=== PATIENT | female | born 1980 | race Caucasian/White ===

== ENCOUNTER 2020-03-29 16:38 | Inpatient (IN) | payer OTHER ==
[2020-03-29] MEDS ORDERED: RINGERS SOLUTION,LACTATED 1,000 ML IV ONE (16:46)
[2020-03-29] MEDS ORDERED: BETAMET ACET/BETAMET NA INJ 6 MG/1 ML IM ONE (16:48)
[2020-03-29 17:41] LABS: APPEARANCE,URINE SLIGHTLY-CLOUDY; BILIRUBIN,URINE NEGATIVE (NEGATIVE); COLOR,URINE STRAW; GLUCOSE, URINE NEGATIVE (NEGATIVE); KETONES,URINE NEGATIVE (NEGATIVE); LEUKOCYTE ESTERASE,URINE LARGE (NEGATIVE); NITRITE,URINE NEGATIVE (NEGATIVE); PROTEIN,URINE NEGATIVE (NEGATIVE); URINE SPECIFIC GRAVITY 1.003; UROBILINOGEN,URINE NEGATIVE mg/dL (<2.0)
[2020-03-29] MEDS ORDERED: BETAMET ACET/BETAMET NA INJ 6 MG/1 ML ONE (17:52)
[2020-03-29 17:58] LABS: URINE AMPHETAMINES SCREEN NEGATIVE; URINE BARBITURATES SCREEN NEGATIVE; URINE BENZODIAZEPINES SCREEN NEGATIVE; URINE COCAINE SCREEN NEGATIVE; URINE MARIJUANA (THC) SCREEN NEGATIVE; URINE METHADONE SCREEN NEGATIVE; URINE PHENCYCLIDINE SCREEN NEGATIVE
[2020-03-29 18:17] LABS: ABSOLUTE EOSINOPHILS # (AUTO) 0.1 10^3/uL (0.0-0.6); ABSOLUTE LYMPHOCYTES (AUTO) 2.1 10^3/uL (0.5-4.7); ABSOLUTE MONOCYTES (AUTO) 0.3 10^3/uL (0.1-1.4); ABSOLUTE NEUT (AUTO) 5.7 10^3/uL (1.7-8.2); BASOPHILS % (AUTO) 0.2 % (0-2); EOSINOPHILS % (AUTO) 0.7 % (0-6); HEMATOCRIT 31.4 % (36.0-47.0); LYMPHOCYTES % (AUTO) 25.5 % (13-45); MEAN CORPUSCULAR HEMOGLOBIN 29.1 pg (27.0-33.4); MEAN CORPUSCULAR HGB CONC 34.9 g/dL (32.0-36.0); MEAN CORPUSCULAR VOLUME 83 fl (80-97); PLATELET COUNT 172 10^3/uL (150-450); RED BLOOD COUNT 3.78 10^6/uL (3.72-5.28); RED CELL DISTRIBUTION WIDTH 14.7 % (11.5-14.0); SEGMENTED NEUTROPHILS % (AUTO) 69.6 % (42-78); TOTAL CELLS COUNTED % (AUTO) 100 %; WHITE BLOOD COUNT 8.2 10^3/uL (4.0-10.5)
--- NOTE | 2020-03-29 18:53 | Admission Physical ---
Datetime Report Generated by CPN: 03/29/2020 18:52 CURRENT ADMISSION Chief Complaint: Sent from OB Office for Evaluation and Treatment - Please Specify Indication for Induction: Not Applicable Admit Impression : , Intrauterine ; No Active Labor; Intact Membranes; Observation/Evaluation Admit Plan: Admit to Unit; Observation/Evaluation ALLERGIES Medication Allergies: Yes Medication Allergies: doxycycline/Generalized elizabeth (03/29/2020); amoxicillin/Generalized elizabeth (03/29/2020); levofloxacin/Generalized elizabeth (03/29/2020) Latex: No Latex Allergies OBSTETRICAL HISTORY EDC: 04/26/2020 00:00 : 3 Para: 1 Term: 1 : 0 SAB: 1 IAB: 0 Ectopic: 0 Livin Cesareans: 1 VBACs: 0 Multiple Births: 0 Gestational Diabetes: No Rh Sensitization: No Incompetent Cervix: No MAGUI: No Infertility: No ART Treatment: No Uterine Anomaly: No IUGR: No Hx Previous C/S: No Macrosomia: No Hx Loss/Stillborn: No PIH: No Hx : No Placenta Previa/Abruption: No Depression/PP Depression: No PTL/PROM: No Post Hemorrhage: No Current Procedures: Ultrasound Obstetrical History Comments: H0-Eyoi-Wsghsyiy failure to progress-Girl G2-SAB G3-Current SEE RECORDS Alcohol: No Marijuana : No Cocaine: No Other Illicit Drugs: No Cigarettes: Never Smoker. 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: No Heart Disease: No Hosp/Surgery: Yes Autoimmune Disorder: No Anesthetic Complications: No Kidney Disease: No Abnormal Pap Smear: No Neuro/Epilepsy: No Psychiatric Disorders: No Other Medical Diseases: No Hepatitis/Liver Disease: No Significant Family History: No Varicosities/Phlebitis: No Trauma/Violence : No Thyroid Dysfunction: No Medical History Comments: Sinus surgery; Csection INFECTIOUS HISTORY Gonorrhea: No Genital Herpes: No Chlamydia: Yes Tuberculosis: No Syphilis: No Hepatitis: No HIV/AIDS Exposure: No Rash or Viral Illness: No HPV: No Infectious History Comments: Chlamydia 2010 PHYSICAL EXAM General: Normal HEENT: Normal Neurologic: Normal Thyroid: Deferred Heart: Normal Lungs: Normal Breast: Deferred Back: Normal Abdomen: Normal Genitourinary Exam: Normal Extremities: Normal DTRs: Normal Pelvic Type: Adequate Vital Signs: Reviewed FETUS A EGA: 36.0 Monitoring: External US FHR- Baseline: 130 Variability: Moderate 6-25bpm Accelerations: 15X15 Decelerations: None FHR Category: Category I Estimated Weight (gm): 2855 Presentation: Vertex Admit Comment: 39yo at 36+0ega (ISAURA from IVF 04/26/2020) presents from the office for Low JAMES. SDP 1.9cm. Total JAMES 3.2. Actimprom negative. h/o Cesaren section - desires repeat. AMA. Obesity. Transfer at 34wks. Incomplete labs done on admission. Admit for Observation. Steroids. IVF. May need to be delivered in the next 24-48 hours if Oligo persists. JAMES yesterday was 5.07 (SDP was 3.78 - others were 0.29, 0.1, 0.9). EFW 2855g (6#5oz) - 47.6%. Reviewed plan of care with patient. She has a h/o prior section and desires repeat. PLANS FOR LABOR AND DELIVERY Labor and Delivery: None Pain Management: Spinal Feeding Preference: Formula Benefit of Breast Feed Discussed: Yes Circumcision: Yes INFORMED CONSENT Informed Consent Obtained: Section Delivery; Risks, Benefits and Alternatives Discussed Signature: with User ID: [email or web address]
[2020-03-29 19:15] LABS: CHLAM PCR NOT DETECTED (NOT DETECT)
[2020-03-30] MEDS: RINGERS SOLUTION,LACTATED 1,000 ML IV PRN ×2 (03:27→21:25)
[2020-03-30 03:57] LABS: ABSOLUTE LYMPHOCYTES (AUTO) 1.1 10^3/uL (0.5-4.7); ABSOLUTE MONOCYTES (AUTO) 0.1 10^3/uL (0.1-1.4); ABSOLUTE NEUT (AUTO) 6.4 10^3/uL (1.7-8.2); BASOPHILS % (AUTO) 0.3 % (0-2); MEAN CORPUSCULAR HGB CONC 34.4 g/dL (32.0-36.0); MEAN CORPUSCULAR VOLUME 85 fl (80-97); MONOCYTES % (AUTO) 1.8 % (3-13); PLATELET COUNT 180 10^3/uL (150-450); RED BLOOD COUNT 3.79 10^6/uL (3.72-5.28); RED CELL DISTRIBUTION WIDTH 14.6 % (11.5-14.0); SEGMENTED NEUTROPHILS % (AUTO) 82.9 % (42-78); TOTAL CELLS COUNTED % (AUTO) 100 %; WHITE BLOOD COUNT 7.7 10^3/uL (4.0-10.5)
[2020-03-30 04:14] LABS: ALBUMIN 3.2 g/dL (3.5-5.0); ALKALINE PHOSPHATASE 149 U/L (38-126); ANION GAP 7 (5-19); ASPARTATE AMINO TRANSFERASE 20 U/L (14-36); BILIRUBIN,DIRECT 0.2 mg/dL (0.0-0.4); BILIRUBIN,TOTAL 0.6 mg/dL (0.2-1.3); BLOOD UREA NITROGEN 6 mg/dL (7-20); CALCIUM 8.9 mg/dL (8.4-10.2); CARBON DIOXIDE 22 mmol/L (22-30); CHLORIDE 105 mmol/L (98-107); GLUCOSE 124 mg/dL (75-110); POTASSIUM 4.2 mmol/L (3.6-5.0); TOTAL PROTEIN 6.1 g/dL (6.3-8.2); URIC ACID 3.3 mg/dL (2.5-7.0)
[2020-03-30 04:35] LABS: UR PRO/CREAT RATIO RESULT 0.7 mg/mg (0.0-0.2); URINE CREATININE 21.2 mg/dL (16-327); URINE PROTEIN 15.6 mg/dL (<12)
--- NOTE | 2020-03-30 17:14 | RADIOLOGY REPORT (SQ) ---
EXAM DESCRIPTION: U/S OB LIMITED IMAGES COMPLETED DATE/TIME: 03/30/2020 4:29 pm REASON FOR STUDY: NEED REPEAT JAMES d/t suspected Oligo COMPARISON: None. TECHNIQUE: Limited transabdominal grayscale ultrasound for evaluation of specific requested obstetri alice parameters. LIMITATIONS: None. FINDINGS: CERVICAL LENGTH: 3.0 cm Closed. L JEWELRY SALES REPRESENTATIVE: 3.2 x 2.5 cm clear. FHR: 141 beats per minute. PRESENTATION: Cephalic. PLACENTA: Anterior ANATOMY: Not assessed OTHER: No other significant findings. IMPRESSION: LIMITED OBSTETRICAL ULTRASOUND WITH MEASURED PARAMETERS DELINEATED ABOVE. Trimester of : Third trimester - 28 weeks to delivery. TECHNICAL DOCUMENTATION: JOB ID: [id number] 2010 [employer]- All Rights Reserved Reading location - IP/workstation name: [email or web address]
[2020-03-30] MEDS ORDERED: BETAMET ACET/BETAMET NA INJ 6 MG/1 ML ONE (17:28)
[2020-03-30] MEDS ORDERED: BETAMET ACET/BETAMET NA INJ 6 MG/1 ML IM ONE (18:00)
[2020-03-30] MEDS ORDERED: GLUCAGON,HUMAN RECOMB 1 MG INJ SUBCUT PRN (21:01)
[2020-03-30] MEDS ORDERED: DEXTROSE 40% GEL 15 GM TUBE PO PRN ×2 (21:01)
[2020-03-30] MEDS ORDERED: DEXTROSE 50%-WATER 25 GM/50 ML DISP.SYRIN IV PRN ×2 (21:01)
--- NOTE | 2020-03-30 22:14 | PDOC PROGRESS REPORT ---
Subjective Progress Note for:: 03/30/20 Subjective:: Doing well. No issues. Reports good FM. Patient states she feels like "things are changing and she is not quite herself-like something isnt right". She denies JOEL, CP, SOB, RUQ pain, n/v or vision changes. She has no VB, LOF or contractions Reason For Visit: IUP @ 36.1 OLIGO, PRE-E Physical Exam - Physical Exam Vital Signs: Intake & Output 03/29/20 03/30/20 03/31/20 06:59 06:59 06:59 Intake Total 1000 Balance 1000 Weight 102 kg General appearance: PRESENT: no acute distress, cooperative Respiratory exam: PRESENT: clear to auscultation edgardo Cardiovascular exam: PRESENT: RRR, +S1, +S2 GI/Abdominal exam: PRESENT: normal bowel sounds - NO tenderness on palpation, soft Extremities exam: PRESENT: full ROM. ABSENT: calf tenderness - Reflexes 1/4 BLE, no clonus, clubbing, pedal edema Neurological exam: PRESENT: alert, awake Psychiatric exam: PRESENT: appropriate affect Result Laboratory Results: 03/30/20 03:47 03/30/20 03:47 03/30/20 03/30/20 03:47 03:47 WBC 7.7 RBC 3.79 Hgb 11.0 L Hct 32.0 L MCV 85 MCH 29.0 MCHC 34.4 RDW 14.6 H Plt Count 180 Seg Neutrophils % 82.9 H Sodium 134.4 L Potassium 4.2 Chloride 105 Carbon Dioxide 22 Anion Gap 7 BUN 6 L Creatinine 0.49 L Est GFR ( Amer) > 60 Glucose 124 H Uric Acid 3.3 Calcium 8.9 Total Bilirubin 0.6 AST 20 Alkaline Phosphatase 149 H Total Protein 6.1 L Albumin 3.2 L Impressions: Obstetrics Ultrasound 03/30/20 00:00 IMPRESSION: LIMITED OBSTETRICAL ULTRASOUND WITH MEASURED PARAMETERS DELINEATED ABOVE. Trimester of : Third trimester - 28 weeks to delivery. Assessment & Plan - Diagnosis (1) Mild pre-eclampsia Qualifiers: Trimester: third trimester Qualified Code(s): O14.03 - Mild to moderate pre-eclampsia, third trimester Is this a current diagnosis for this admission?: Yes (2) Oligohydramnios Qualifiers: Fetus number: single or unspecified fetus Trimester: third trimester Qualified Code(s): O41.03X0 - Oligohydramnios, third trimester, not applicable or unspecified Is this a current diagnosis for this admission?: Yes (3) resulting from assisted reproductive technology Qualifiers: Trimester: third trimester Qualified Code(s): O09.813 - Supervision of resulting from assisted reproductive technology, third trimester Is this a current diagnosis for this admission?: Yes - Time Time Spent with patient: 15-24 minutes Medications reviewed and adjusted accordingly: Yes Anticipated discharge: Home Anticipated DC Timeframe: within 48 hours, within 36 hours - Inpatient Certification Based on my medical assessment, after consideration of the patient's lorena rbidities, presenting symptoms, or acuity I expect that the services needed warrant INPATIENT care.: Yes I certify that my determination is in accordance with my understanding of Medicare's requirements for reasonable and necessary INPATIENT services [42 CFR 412.3e].: Yes Medical Necessity: Need Close Monitoring Due to Risk of Patient Decompensation - Mild preeclampsia, oligohydraminos: recieving steroids prior to delivery and needs Continuous external monitoring - Plan Summary Plan Summary: 39 yo at 36.1 wks EGA with Preeclampsia: mild and Oligohydraminos with JAMES of 2.5 cm -Admit to LDR for CEFM and steroids -Give BMZ x2, last will be today at 1755 -May eat until after midnight for RCS tomorrow -Out of bed at monty -VS q 4 hrs -Repeat CBC, CMP in am -No plan for magnesium unless progression to severe preE -Risks, benefits of RCS discussed. Answered questions and consent signed.
[2020-03-31 06:47] LABS: ABSOLUTE LYMPHOCYTES (AUTO) 1.4 10^3/uL (0.5-4.7); ABSOLUTE MONOCYTES (AUTO) 0.4 10^3/uL (0.1-1.4); BASOPHILS % (AUTO) 0.1 % (0-2); EOSINOPHILS % (AUTO) 0.1 % (0-6); HEMATOCRIT 32.2 % (36.0-47.0); HEMOGLOBIN 11.1 g/dL (12.0-15.5); LYMPHOCYTES % (AUTO) 15.5 % (13-45); MEAN CORPUSCULAR HGB CONC 34.4 g/dL (32.0-36.0); MEAN CORPUSCULAR VOLUME 84 fl (80-97); MONOCYTES % (AUTO) 4.2 % (3-13); PLATELET COUNT 155 10^3/uL (150-450); RED BLOOD COUNT 3.82 10^6/uL (3.72-5.28); RED CELL DISTRIBUTION WIDTH 14.4 % (11.5-14.0); SEGMENTED NEUTROPHILS % (AUTO) 80.1 % (42-78); TOTAL CELLS COUNTED % (AUTO) 100 %; WHITE BLOOD COUNT 8.8 10^3/uL (4.0-10.5)
[2020-03-31 07:28] LABS: ALBUMIN 3.1 g/dL (3.5-5.0); ALKALINE PHOSPHATASE 142 U/L (38-126); ANION GAP 6 (5-19); ASPARTATE AMINO TRANSFERASE 19 U/L (14-36); BILIRUBIN,DIRECT 0.2 mg/dL (0.0-0.4); BILIRUBIN,TOTAL 0.3 mg/dL (0.2-1.3); BLOOD UREA NITROGEN 8 mg/dL (7-20); CALCIUM 8.9 mg/dL (8.4-10.2); CARBON DIOXIDE 22 mmol/L (22-30); CHLORIDE 108 mmol/L (98-107); GLUCOSE 125 mg/dL (75-110)
[2020-03-31 07:37] LABS: HEPATITIS C VIRUS AB <0.1 s/co ratio (0.0-0.9)
[2020-03-31] MEDS ORDERED: CITRIC ACID/SODIUM CITRATE ORAL SOLN 15 ML UDCUP ONE (07:54)
[2020-03-31] MEDS ORDERED: CEFAZOLIN 2 GM/D5W RTU 2 GM/50 ML RTUPB IV ONE (07:54)
[2020-03-31] MEDS ORDERED: ONDANSETRON HCL INJ/PF 4 MG/2 ML SDV ONE (08:53)
[2020-03-31] MEDS ORDERED: OXYTOCIN 10 UNIT/ML VIAL ONE (08:54)
[2020-03-31] MEDS ORDERED: MIDAZOLAM 2 MG/2 ML INJ ONE (08:54)
[2020-03-31] MEDS ORDERED: PHENYLEPHRINE HCL INJ/PF 10 MG/1 ML SDV ONE (09:26)
--- NOTE | 2020-03-31 09:48 | Warning Signs in Babies ---
VOD Warning Signs Datetime Report Generated by [facility]: 03/31/2020 09:48 VOD#[id number] -Warning Signs in Babies: Needs to be viewed. (03/29/2020 17:15:Kahlil Parekh RN)
[2020-03-31] MEDS ORDERED: RINGERS SOLUTION,LACTATED 1,000 ML IV PRN ×2 (11:09→16:19)
[2020-03-31] MEDS ORDERED: MEASLES,MUMPS&RUBELLA VACC/PF 0.5 ML VIAL SUBCUT PRN ×2 (11:09→16:19)
[2020-03-31] MEDS ORDERED: MORPHINE SULFATE 10 MG/ML INJ ONE (11:09)
[2020-03-31] MEDS ORDERED: OXYTOCIN/0.9 % SODIUM CHLORIDE 30 UNIT/500 ML RTUINJ IV PRN ×2 (11:09→16:19)
[2020-03-31] MEDS ORDERED: OXYCODONE-ACETAMINOPHEN 5-325 MG TABLET PO PRN ×3 (11:09→16:19)
[2020-03-31] MEDS ORDERED: OXYTOCIN/0.9 % SODIUM CHLORIDE 30 UNIT/500 ML RTUINJ ONE (11:09)
[2020-03-31] MEDS ORDERED: SIMETHICONE 80 MG TAB.CHEW PO PRN ×2 (11:09→16:19)
[2020-03-31] MEDS ORDERED: ACETAMINOPHEN 325 MG TABLET PO PRN ×2 (11:09→16:19)
[2020-03-31] MEDS ORDERED: PROMETHAZINE HCL INJ 25 MG/1 ML VIAL IV PRN ×2 (11:09→16:19)
[2020-03-31] MEDS ORDERED: ACETAMINOPHEN 1,000 MG/100 ML RTUPB IV PRN (11:09)
[2020-03-31] MEDS ORDERED: DIPH/PERTUSS(ACELL)/TETANUS VAC/PF 0.5 ML SYR (>=10YO) IM PRN ×2 (11:09→16:19)
--- NOTE | 2020-03-31 12:45 | Delivery Summary ---
Del Sum A-C Datetime Report Generated by CPN: 03/31/2020 12:45 DELIVERY PERSONNEL DELIVERY PERSONNEL: [id number] Delivery Doctor:: Marycarmen Linda MD SCRAP METAL BURNER:: Marck Leonardo CRNA Labor and Delivery Nurse:: Kahlil Parekh RN Loom Operator Apprentice:: Kahlil Parekh RN Neonatal Nurse Practitioner:: SANTOSH Alvarado Nursery Nurse:: Justyna Pryor RN Community Representative/ENDING MACHINE OPERATOR: Kate Sanchez PRE PAROLE COUNSELING AIDE Community Representative/ENDING MACHINE OPERATOR: Tori Ross, ST MATERNAL INFORMATION Delivery Anesthesia: Spinal Medications After Delivery: Pitocin 30 Units in 500ml NS/D5W Delivery QBL: 840 Maternal Complications: None LABOR SUMMARY EDC: 04/26/2020 00:00 No. Babies in Womb: 1 Attempted: No Labor Anesthesia: None LABOR INFORMATION Reason for Induction: Not Applicable Oxytocin: N/A Group B Beta Strep: 1 NO GROUP B STREPTOCOCCUS RECOVERED Antibiotics # of Doses: 1 Antibiotics Time of Last Dose: 03/31/2020 08:12 Name of Antibiotic Given: Ancef Steroids Given: Full Course; > 24 Hours before Delivery Reason Steroids Not Administered: Indication MEMBRANES Membranes Rupture Method: Artificial Rupture of Membranes: 03/31/2020 09:30 Length of Rupture (hr): 0.05 Amniotic Fluid Color: Clear Amniotic Fluid Amount: Scant Amniotic Fluid Odor: Normal STAGES OF LABOR Stage 3 hr: 0 Stage 3 min: 1 VAGINAL DELIVERY Episiotomy: None Laceration #1: None Laceration Extension #1: N/A Laceration Repair: Not Applicable Sponge Count Correct: N/A Sharps Count Correct: N/A CSECTION DELIVERY Primary Indication: Repeat Elective CSection Urgency: Non-Scheduled CSection Incidence: Repeat Labor: N/A Elective: Elective CSection Incision: Lower Uterine Transverse BABY A INFORMATION Infant Delivery Date/Time: 03/31/2020 09:33 Method of Delivery: Nurse Controlled Delivery: No Born in Route : No : N/A Forceps: N/A Vacuum Extraction: Successful Shoulder Dystocia : No ASSISTED DELIVERY BABY A Catheter Prior to Procedure: Yes Vacuum Number of Pulls: 1 Vacuum Sandwich Counter Attendant: [employer] Total Time Vacuum Applied: 1 Vacuum/Forceps Comment: Kiwi used during Ref [id number] Lot [id number] PRESENTATION/POSITION BABY A Presentation: Cephalic Cephalic Presentation: Vertex Breech Presentation: N/A PLACENTA INFORMATION BABY A Placenta Delivery Time : 03/31/2020 09:34 Placenta Method of Delivery: Manual Removal Placenta Status: Delivered SCORES BABY A Heart Rate 1 min: Slow, Below 100 bpm Resp Effort 1 min: Absent Reflex Irritability 1 min: Grimace Muscle Tone 1 min: Flaccid Color 1 min: Blue/Pale Resuscitation Effort 1 min: Tactile Stimulation; Oxygen; PPV/NCPAP SCORE 1 MIN: 2 Heart Rate 5 min: >100 bpm Resp Effort 5 min: Good Cry Reflex Irritability 5 min: Cough or Sneeze or Pulls Away Muscle Tone 5 min: Some Flexion of Extremities Color 5 min: Body [place], Extremities Blue Resuscitation Effort 5 min: Tactile Stimulation SCORE 5 MIN: 8 INFORMATION BABY A Gestational Age at Delivery: 36.2 Gestational Status: Late - 34- 36.6 Weeks Infant Outcome : Liveborn Infant Condition : Stable Infant Sex: Male IDENTIFICATION BABY A Infant Verification Date/Time: 03/31/2020 09:47 ID Band Number: [id number] Mother's Name Verified: Yes Infant RN Verifying : CCourtney Hooks, RN ; M. Stiven, RN WEIGHT/LENGTH BABY A Birthweight (gm): 2795 Infant Weight (lb): 6 Weight (oz): 3 Length (in): 19.00 Infant Length (cm): 48.26 CORD INFORMATION BABY A No. Cord Vessels: 3 Nuchal Cord : N/A Cord Blood Taken: Yes-For Storage (Mom's Blood type +) Infant Suction: Mouth ASSESSMENT BABY A Skin to Skin: No BABY B INFORMATION : N/A
--- NOTE | 2020-03-31 12:46 | Birth Certificate Data ---
Cert Data Datetime Report Generated by CPJuan: 03/31/2020 12:45 CERTIFICATE DATA 47a. Care: Yes (03/29/2020 17:15:Rosa Vogel RN) 47b. Date of First Visit: 09/22/2019 00:00 (03/29/2020 17:15:Rosa Vogel RN) 48a. Number of Prev Live Births: 1 (03/29/2020 17:15:Rosa Vogel RN) 48b. Now Livin (03/29/2020 17:15:Rosa Vogel RN) 48c. Live Births Now : 0 (03/29/2020 17:15:QS system process) 48d. Date of Last Live : 06/19/2016 00:00 (03/29/2020 17:15:Rosa Vogel RN) 48e. Losses: 1 (03/29/2020 17:15:Rosa Vogel RN) 48f. Date of Last Preg Loss: 01/23/2019 00:00 (03/29/2020 17:15:Rosa Vogel RN) RISK FACTORS IN THIS 49a. Diabetes: No (03/29/2020 17:15:Rosa Vogel RN) 49b. Hypertension: No (03/29/2020 17:15:Rosa Vogel RN) 49c. Previous Births: 0 (03/29/2020 17:15:Rosa Vogel RN) 49d. Stillborns: No (03/29/2020 17:15:Rosa Vogel RN) 49d. IUGR: No (03/29/2020 17:15:Rosa Vogel RN) 49e. Infertility Treatment: No (03/29/2020 17:15:Rosa Vogel RN) 49f. Previous Cesareans: 1 (03/29/2020 17:15:Rosa Vogel RN) Mother's Height 50b. Height Inches: 60 (03/29/2020 17:38:QS system process) Mother's Weight 51a. Pre- Weight (lbs): 205 (03/29/2020 17:15:Rosa Vogel RN) 51b. Weight at Delivery (lbs): 224 (03/29/2020 17:38:QS system process) 52. Dt Last Normal Menses Began: 07/21/2019 00:00 (03/29/2020 17:15:Rosa Vogel RN) Infections Present/Treated 53a. Gonorrhea: No (03/29/2020 17:15:Rosa Vogel RN) Results this Hospital Visit : Negative (03/29/2020 17:15:Rosa Vogel RN) 53b. Syphilis: No (03/29/2020 17:15:Rosa Vogel RN) 53c. Chlamydia: Yes (03/29/2020 17:15:Rosa Vogel RN) Results this Hospital Visit: Negative (03/29/2020 17:15:Rosa Vogel RN) 53d. Hepatitis B: No (03/29/2020 17:15:Rosa Vogel RN) Results this Hospital Visit: Negative (03/29/2020 17:15:Rosa Vogel RN) 53h. Mother Tested for HBsAG: Yes (03/29/2020 17:15:Rosa Vogel RN) 53i. Date Tested: 09/22/2019 00:00 (03/29/2020 17:15:Rosa Vogel RN) 53j. Test Result: Negative (03/29/2020 17:15:Rosa Vogel RN) Obstetric Procedures 54a, b, c. Obstetric Procedures: Ultrasound; ART (IVF, GIFT, ZIFT) (Annotations: Data stored by [facility] on behalf of user) (03/29/2020 17:15:Tonia Garcia RN) Cigarette Smoking Cigarette Smoking: Never Smoker. [id number] (03/29/2020 17:15:Rosa Vogel RN) 55a. 3 Months Before Preg - Ci (03/29/2020 17:15:Rosa Vogel RN) 55b. 1st Trimester of Preg- Ci (03/29/2020 17:15:Rosa Vogel RN) 55c. 2nd Trimester of Preg- Ci (03/29/2020 17:15:Rosa Vogel RN) 55d. 3rd Trimester of Preg- Ci (03/29/2020 17:15:Rosa Vogel RN) Onset of Labor 56a. PROM >12 Hrs: 0.05 (03/29/2020 17:15:QS system process) 57a. Induction of Labor: N/A (03/29/2020 17:15:Kahlil Parekh RN) 57c. Non-Vertex Presentation A: Vertex (03/29/2020 17:15:Kahlil Parekh RN) 57d. Steroids - Lung Mat: Full Course; > 24 Hours before Delivery (03/29/2020 17:15:Tonia Garcia RN) 57d. Steroids - Lung Mat: Celestone 12mg IM - Dose 2 (03/30/2020 17:34:Kahlil Parekh RN) 57d. Steroids - Lung Mat: Indication (03/29/2020 17:15:Tonia Garcia RN) 57e. Antibiotics During Labor: 03/31/2020 08:12 (03/29/2020 17:15:Kahlil Parekh RN) 57g. Moderate/Heavy Meconium: Clear (03/29/2020 17:15:Kahlil Parekh RN) 57h. Intolerance of Labor: Repeat Elective (03/29/2020 17:15:Kahlil Parekh RN) 57i. Epidural/Spinal Anesthesia: None (03/29/2020 17:15:Kahlil Parekh RN) Method of Delivery 58a. Forceps - Unsuccessful A: N/A (03/29/2020 17:15:Kahlil Parekh RN) 58b. Vacuum - Unsuccessful A: Successful (03/29/2020 17:15:Kahlil Parekh RN) 58c. Presentation at 58c. Presentation at - A : Vertex (03/29/2020 17:15:Kahlil Parekh RN) 58c. Presentation at - A : N/A (03/29/2020 17:15:Kahlil Parekh RN) 58c. Presentation at - A : Cephalic (03/29/2020 17:15:Kahlil Parekh RN) Final Route and Method of Del 58d. Baby A Route/Delivery: (03/29/2020 17:15:Kahlil Parekh RN) 58e. Trial of Labor Attempted: No (03/29/2020 17:15:Tonia Garcia RN) 58e. Trial of Labor Attempted A: N/A (03/29/2020 17:15:Tonia Garcia RN) 58e. Trial of Labor Attempted B: N/A (03/29/2020 17:15:Tonia Garcia RN) Maternal Morbidity 59b. 3rd or 4th Degree Lacs: None (03/29/2020 17:15:Kahlil Parekh RN) Birthweight Baby A: 2795 (03/29/2020 17:15:Justyna Pryor RN) 60a. Pounds : 6 (03/29/2020 17:15:QS system process) 60b. Ounces: 3 (03/29/2020 17:15:QS system process) 61. GA at Delivery Baby A: 36.2 (03/29/2020 17:15:Kahlil Parekh RN) : Late - 34- 36.6 Weeks (03/29/2020 17:15:QS system process) 62a. 5 Minute Baby A: 8 (03/29/2020 17:15:QS system process)
--- NOTE | 2020-03-31 15:04 | PDOC DELIVERY SUMMARY ---
Delivery Summary - Maternal Hx : II Hx Para: I Hx # Term Pregnancies: 1 Hx # Pregnancies: 0 Hx Total # of Abortions (Sponateous & Elective): 0 Number of Living Children: 1 Gestational Age: 36.2 Risk Factors: Pre-Eclampsia, Oligohydramnios Intrapartum: Pre-Eclampsia - Delivery Presentation: Vertex Heart Rate Monitoring: Externally Uterine Contraction Monitoring: External Support Person Present: Yes Location: OR : Scheduled Placenta: Within Normal Limits Placenta Description: Grossly normal Number of Vessels (Cord): 3 Nuchal Cord: No Estimated Blood Loss: 1,200 Delivery Quantitative Blood Loss (QBL): 850 - Medications Type of Anesthesia:: Spinal - Delivery Personnel RN: NICCI BROWNLEE MD: SMITH QUIGLEY
[2020-03-31] MEDS ORDERED: HYDROMORPHONE HCL INJ/PF 2 MG/ML AMPULE IV PRN (16:19)
[2020-03-31] MEDS: OXYCODONE-ACETAMINOPHEN 5-325 MG TABLET PO PRN (17:16)
[2020-03-31] MEDS: DOCUSATE SODIUM 100 MG CAPSULE PO SCH (17:16)
[2020-03-31] MEDS ORDERED: DOCUSATE SODIUM 100 MG CAPSULE PO SCH (18:00)
[2020-03-31] MEDS: KETOROLAC TROMETHAMINE INJ/PF 30 MG/1 ML SDV IV SCH (22:03)
[2020-04-01] MEDS: OXYCODONE-ACETAMINOPHEN 5-325 MG TABLET PO PRN (03:45)
[2020-04-01] MEDS: KETOROLAC TROMETHAMINE INJ/PF 30 MG/1 ML SDV IV SCH (05:11)
[2020-04-01] MEDS: IBUPROFEN 800 MG TABLET PO SCH ×3 (05:38→21:36)
[2020-04-01 08:29] LABS: HEMATOCRIT 30.5 % (36.0-47.0); HEMOGLOBIN 10.3 g/dL (12.0-15.5); MEAN CORPUSCULAR HEMOGLOBIN 28.5 pg (27.0-33.4); MEAN CORPUSCULAR HGB CONC 33.7 g/dL (32.0-36.0); MEAN CORPUSCULAR VOLUME 84 fl (80-97); PLATELET COUNT 158 10^3/uL (150-450); RED BLOOD COUNT 3.61 10^6/uL (3.72-5.28); RED CELL DISTRIBUTION WIDTH 14.5 % (11.5-14.0); WHITE BLOOD COUNT 12.9 10^3/uL (4.0-10.5)
[2020-04-01] MEDS: DOCUSATE SODIUM 100 MG CAPSULE PO SCH ×2 (09:36→17:25)
[2020-04-01] MEDS: PRENATAL VITAMIN W DHA CAPSULE PO SCH (09:36)
[2020-04-01] MEDS ORDERED: PRENATAL VITAMIN W DHA CAPSULE PO SCH (10:00)
--- NOTE | 2020-04-01 10:48 | PDOC PROGRESS REPORT ---
Subjective-OB Progress Note for:: 04/01/20 Subjective: Pt doing well, no concerns. She reports light bleeding, reg diet and voiding w/o difficulty. Physical Exam (OB) Vital Signs: Temp Pulse Resp BP Pulse Ox 97.5 F 63 16 106/63 96 04/01/20 08:00 04/01/20 08:00 04/01/20 08:00 04/01/20 08:00 04/01/20 08:00 Intake & Output 03/31/20 04/01/20 04/02/20 06:59 06:59 06:59 Intake Total 1000 3250 240 Output Total 2050 Balance 1000 1200 240 - Dressing Removed: Yes - prior shift Incision: Well Approximated Closure Type: Surgical Glue - Maternal Morbidity 59. Maternal Morbidity (serious complications experinced by the mother associated with labor and delivery: None of the above - Lochia Lochia Amount: Small 10-25 ml Lochia Color: Rubra/Red - Abdomen Description: Soft, Round Fundal Description: Firm, Midline Fundal Height: u/u - u/2 Objective-Diagnostic Laboratory: 04/01/20 08:00 03/31/20 06:40 04/01/20 08:00 WBC 12.9 H RBC 3.61 L Hgb 10.3 L Hct 30.5 L MCV 84 MCH 28.5 MCHC 33.7 RDW 14.5 H Plt Count 158 03/29/20 17:05 Vaginal/Anorectal Group B Streptococcus Culture - Final NO GROUP B STREPTOCOCCUS RECOVERED Assessment and Plan(PN) - Assessment and Plan (1) History of delivery Is this a current diagnosis for this admission?: Yes (2) Mild pre-eclampsia Qualifiers: Trimester: third trimester Qualified Code(s): O14.03 - Mild to moderate pre-eclampsia, third trimester Is this a current diagnosis for this admission?: Yes (3) Oligohydramnios Qualifiers: Fetus number: single or unspecified fetus Trimester: third trimester Qualified Code(s): O41.03X0 - Oligohydramnios, third trimester, not applicable or unspecified Is this a current diagnosis for this admission?: Yes (4) resulting from assisted reproductive technology Qualifiers: Trimester: third trimester Qualified Code(s): O09.813 - Supervision of resulting from assisted reproductive technology, third trimester Is this a current diagnosis for this admission?: Yes - Time Spent with Patient Time with patient: Less than 15 minutes Medications reviewed and adjusted accordingly: Yes - Disposition Anticipated Discharge Disposition: Home, Self Care Anticipated Discharge Timeframe: within 24 hours
[2020-04-01] MEDS ORDERED: FAMOTIDINE 20 MG TABLET ONE (21:21)
[2020-04-02] MEDS: IBUPROFEN 800 MG TABLET PO SCH ×2 (05:06→13:25)
[2020-04-02 08:16] VITALS: BP 131/78
[2020-04-02] MEDS: PRENATAL VITAMIN W DHA CAPSULE PO SCH (10:00)
[2020-04-02] MEDS: DOCUSATE SODIUM 100 MG CAPSULE PO SCH (10:00)
--- NOTE | 2020-04-02 10:20 | PDOC DISCHARGE SUMMARY ---
Impression - Admit/DC Date/PCP Admission Date/Primary Care Provider: 03/30/20 18:55 CLEMENT ROSS MD Discharge Date: 04/02/20 - Discharge Diagnosis (1) Vacuum-assisted delivery, delivered, current hospitalization Is this a current diagnosis for this admission?: Yes (2) Mild pre-eclampsia Is this a current diagnosis for this admission?: Yes (3) Oligohydramnios Is this a current diagnosis for this admission?: Yes (4) History of delivery Is this a current diagnosis for this admission?: Yes (5) resulting from assisted reproductive technology Is this a current diagnosis for this admission?: Yes - Additional Information Discharge Diet: Regular Discharge Activity: Balance Activity w/Rest, No Lifting Over 10 Pounds, No Lifting/Push/Pulling, Pelvic Rest Referrals: CLEMENT ROSS MD [Primary Care Provider] - Prescriptions: Ibuprofen [Motrin 800 mg Tablet] 800 mg PO Q8HP PRN #90 tablet PRN Reason: Oxycodone HCl/Acetaminophen [Percocet 5-325 mg Tablet] 1 tab PO Q4HP PRN #30 tablet PRN Reason: Home Medications: 95/Iron Fum/Folic/Dha [ + Dha Combo Pack] 1 each PO DAILY 03/29/20 Ibuprofen [Motrin 800 mg Tablet] 800 mg PO Q8HP PRN #90 tablet 04/02/20 Oxycodone HCl/Acetaminophen [Percocet 5-325 mg Tablet] 1 tab PO Q4HP PRN #30 tablet 04/02/20 Hospital Course 59. Maternal Morbidity (serious complications experinced by the mother associated with labor and delivery: None of the above Results Laboratory Results: WBC 12.9 10^3/uL (4.0-10.5) H 04/01/20 08:00 RBC 3.61 10^6/uL (3.72-5.28) L 04/01/20 08:00 Hgb 10.3 g/dL (12.0-15.5) L 04/01/20 08:00 Hct 30.5 % (36.0-47.0) L 04/01/20 08:00 MCV 84 fl (80-97) 04/01/20 08:00 MCH 28.5 pg (27.0-33.4) 04/01/20 08:00 MCHC 33.7 g/dL (32.0-36.0) 04/01/20 08:00 RDW 14.5 % (11.5-14.0) H 04/01/20 08:00 Plt Count 158 10^3/uL (150-450) 04/01/20 08:00 Lymph % (Auto) 15.5 % (13-45) 03/31/20 06:40 Winston % (Auto) 4.2 % (3-13) 03/31/20 06:40 Eos % (Auto) 0.1 % (0-6) 03/31/20 06:40 Baso % (Auto) 0.1 % (0-2) 03/31/20 06:40 Absolute Neuts (auto) 7.0 10^3/uL (1.7-8.2) 03/31/20 06:40 Absolute Lymphs (auto) 1.4 10^3/uL (0.5-4.7) 03/31/20 06:40 Absolute Monos (auto) 0.4 10^3/uL (0.1-1.4) 03/31/20 06:40 Absolute Eos (auto) 0.0 10^3/uL (0.0-0.6) 03/31/20 06:40 Absolute Basos (auto) 0.0 10^3/uL (0.0-0.2) 03/31/20 06:40 Seg Neutrophils % 80.1 % (42-78) H 03/31/20 06:40 Sodium 136.3 mmol/L (137-145) L 03/31/20 06:40 Potassium 4.0 mmol/L (3.6-5.0) 03/31/20 06:40 Chloride 108 mmol/L (98-107) H 03/31/20 06:40 Carbon Dioxide 22 mmol/L (22-30) 03/31/20 06:40 Anion Gap 6 (5-19) 03/31/20 06:40 BUN 8 mg/dL (7-20) 03/31/20 06:40 Creatinine 0.49 mg/dL (0.52-1.25) L 03/31/20 06:40 Est GFR ( Amer) > 60 (>60) 03/31/20 06:40 Est GFR (MDRD) Non-Af > 60 (>60) 03/31/20 06:40 Glucose 125 mg/dL (75-110) H 03/31/20 06:40 Uric Acid 3.3 mg/dL (2.5-7.0) 03/30/20 03:47 Calcium 8.9 mg/dL (8.4-10.2) 03/31/20 06:40 Total Bilirubin 0.3 mg/dL (0.2-1.3) 03/31/20 06:40 Direct Bilirubin 0.2 mg/dL (0.0-0.4) 03/31/20 06:40 Neonat Total Bilirubin Not Reportable 03/31/20 06:40 Neonat Direct Bilirubin Not Reportable 03/31/20 06:40 Neonat Indirect Bili Not Reportable 03/31/20 06:40 AST 19 U/L (14-36) 03/31/20 06:40 ALT 10 U/L (<35) 03/31/20 06:40 Alkaline Phosphatase 142 U/L (38-126) H 03/31/20 06:40 Lactate Dehydrogenase 109 U/L (120-246) L 03/30/20 03:47 Total Protein 6.0 g/dL (6.3-8.2) L 03/31/20 06:40 Albumin 3.1 g/dL (3.5-5.0) L 03/31/20 06:40 TSH 2.04 uIU/mL (0.47-4.68) 03/29/20 17:52 Urine Color STRAW 03/29/20 17:05 Urine Appearance SLIGHTLY-CLOUDY 03/29/20 17:05 Urine pH 7.0 (5.0-9.0) 03/29/20 17:05 Ur Specific Stephenson 1.003 03/29/20 17:05 Urine Protein NEGATIVE mg/dL (NEGATIVE) 03/29/20 17:05 Urine Glucose (UA) NEGATIVE mg/dL (NEGATIVE) 03/29/20 17:05 Urine Ketones NEGATIVE mg/dL (NEGATIVE) 03/29/20 17:05 Urine Blood NEGATIVE (NEGATIVE) 03/29/20 17:05 Urine Nitrite NEGATIVE (NEGATIVE) 03/29/20 17:05 Urine Bilirubin NEGATIVE (NEGATIVE) 03/29/20 17:05 Urine Urobilinogen NEGATIVE mg/dL (<2.0) 03/29/20 17:05 Ur Leukocyte Esterase LARGE (NEGATIVE) H 03/29/20 17:05 Urine Creatinine 21.2 mg/dL (16-327) 03/29/20 17:05 Protein/Creatinin Ratio 0.7 mg/mg (0.0-0.2) H 03/29/20 17:05 Urine Total Protein 15.6 mg/dL (<12) H 03/29/20 17:05 Urine Ascorbic Acid NEGATIVE (NEGATIVE) 03/29/20 17:05 Membranes Rupture NEGATIVE (NEGATIVE) 03/29/20 17:05 Urine Opiates Screen NEGATIVE 03/29/20 17:05 Urine Methadone Screen NEGATIVE 03/29/20 17:05 Ur Barbiturates Screen NEGATIVE 03/29/20 17:05 Ur Phencyclidine Scrn NEGATIVE 03/29/20 17:05 Ur Amphetamines Screen NEGATIVE 03/29/20 17:05 U Benzodiazepines Scrn NEGATIVE 03/29/20 17:05 Urine Cocaine Screen NEGATIVE 03/29/20 17:05 U Marijuana (THC) Screen NEGATIVE 03/29/20 17:05 RPR NONREACTIVE (NONREACTIVE) 03/29/20 17:52 Chlamydia DNA (PCR) NOT DETECTED (NOT DETECT) 03/29/20 17:36 Hepatitis C (BERNARDA) <0.1 s/co ratio (0.0-0.9) 03/29/20 17:52 Hep C Verif Com 1 Comment (.) 03/29/20 17:52 HIV 1&2 Antibody NEGATIVE (NEGATIVE) 03/29/20 17:52 N.gonorrhoeae DNA (PCR) NOT DETECTED (NOT DETECT) 03/29/20 17:36 Blood Type AB POSITIVE 03/29/20 17:52 Antibody Screen NEGATIVE 03/29/20 17:52 Impressions: Obstetrics Ultrasound 03/30/20 00:00 IMPRESSION: LIMITED OBSTETRICAL ULTRASOUND WITH MEASURED PARAMETERS DELINEATED ABOVE. Trimester of : Third trimester - 28 weeks to delivery. Plan Plan of Treatment: follow up in one week at [facility] for incision check and BP check
[2020-04-02 15:37] LABS: HGB A2 2.2 % (1.8-3.2); HGB SOLUBILITY RESULT Negative (Negative)
== END 2020-04-02 13:34 | disposition home or self-care (01) | DRG 786 ==
LOC: LC 16:38 → OBSVTOIN 17:52 → INTOOBSV 17:52 → LR 17:52 → UNDOADMOB 17:52 → OBSVTOIN 03-30 18:55 → LR 03-30 18:55 → 2N 03-31 12:17
PROVIDERS: ADMIT Obstetrics & Gynecology; ATTEND Obstetrics & Gynecology
PROC: 10D00Z1 Extraction of Products of Conception, Low, Open Approach (ICD-10-PCS; principal; 2020-03-31)
DX: O14.04 Mild to moderate pre-eclampsia, complicating childbirth (principal); O41.1230 Chorioamnionitis, third trimester, not applicable or unspecified; O41.03X0 Oligohydramnios, third trimester, not applicable or unspecified; O34.211 Maternal care for low transverse scar from previous cesarean delivery; Z88.1 Allergy status to other antibiotic agents; Z88.3 Allergy status to other anti-infective agents; Z03.818 Encounter for observation for suspected exposure to other biological agents ruled out; Z3A.36 36 weeks gestation of pregnancy; Z37.0 Single live birth
CPT/HCPCS: 1961; 36415; 76815; 80053; 80307; 81005; 82570; 83020; 83615; 84112; 84156; 84443; 84550; 85025; 85027; 86592; 86701; 86803; 86804; 86850; 86900; 86901; 87081; 87491; 87591; 88307; 94760; 94799; 96372; G0378; J0690; J0702; J1885; J2250; J2270; J2370; J2405; J2590; J3490